=== PATIENT | female | born 2000 | race Caucasian/White ===

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

== ENCOUNTER 2023-09-09 01:20 | Emergency (ER) | payer OTHER ==
[~2023-09-09] VITALS: Ht 167.6 cm; Wt 127.0 kg
[2023-09-09 01:25] VITALS: TEMP 100.6
[2023-09-09 02:18] LABS: BASOPHILS % (AUTO) 0.3 % (0.0-2.0); EOSINOPHILS % (AUTO) 0.5 % (1.0-6.0); HEMATOCRIT 41.6 % (36-46); HEMOGLOBIN 13.8 g/dL (12.0-16.0); LYMPHOCYTES % (AUTO) 7.6 % (22.0-44.0); MEAN CORPUSCULAR HGB CONC 33.2 G/dL (31.0-37.0); MEAN CORPUSCULAR VOLUME 88 fL (80-100); MONOCYTES # (AUTO) 1.1 K/uL (0.1-1.0); MONOCYTES % (AUTO) 8.2 % (2.0-9.0); NEUTROPHILS # (AUTO) 11.5 K/uL (1.8-7.7); NEUTROPHILS % (AUTO) 83.4 % (40.0-70.0); PLATELET COUNT (AUTO) 387 K/uL (150-450); RED BLOOD CELL COUNT(AUTO) 4.76 MIL/uL (4.00-5.20); RED CELL DISTRIBUTION WIDTH 13.9 % (11.5-14.5); WHITE BLOOD COUNT (AUTO) 13.8 K/uL (4.5-11.0)
[2023-09-09 02:30] LABS: ANION GAP 9 mmol/L (8-16); CALCIUM, TOTAL 9.4 mg/dL (8.8-10.5); CARBON DIOXIDE 26 mmol/L (22-29); CHLORIDE 100 mmol/L (98-107); CREATININE 0.81 mg/dL (0.60-1.30); GLOMERULAR FILTR. RATE CALC > 60 mL/min (>60); GLUCOSE,RANDOM 119 mg/dL (70-110); POTASSIUM 3.9 mmol/L (3.5-5.1); SODIUM SERUM 135 mmol/L (136-145); UREA NITROGEN, BLOOD 12 mg/dL (7-18)
[2023-09-09 02:34] LABS: ALANINE AMINOTRANSFERASE 47 U/L (12-78); ALBUMIN 4.1 g/dL (3.4-5.0); ALKALINE PHOSPHATASE 57 U/L (46-116); ASPARTATE AMINOTRANSFERASE 26 U/L (15-37); BILIRUBIN,TOTAL 0.5 mg/dL (0.1-1.0); LIPASE 16 U/L (16-77); TOTAL PROTEIN, SERUM 8.5 g/dL (6.4-8.2)
[2023-09-09] MEDS ORDERED: ONDANSETRON HCL 4 MG/2 ML VIAL IVP ONE (02:45)
[2023-09-09] MEDS ORDERED: KETOROLAC TROMETHAMINE 30 MG/ML VIAL IVP ONE (02:45)
[2023-09-09] MEDS ORDERED: SODIUM CHLORIDE 0.9% 100 ML ONE (02:49)
[2023-09-09] MEDS ORDERED: IOHEXOL 350 MG/ML 100 ML VIAL ONE (02:49)
[2023-09-09 02:56] LABS: COVID AG,FIA SOURCE NASAL SWAB
[2023-09-09 03:17] LABS: INFLUENZA TYPE A NEGATIVE FOR TYPE A (NEGATIVE); INFLUENZA TYPE B NEGATIVE FOR TYPE B (NEGATIVE)
[2023-09-09 03:45] VITALS: BP 147/89; PULSE 88; RESP 20
[2023-09-09 03:48] LABS: SARS-COV2 (COVID) ANTIGEN,FIA Positive (Negative)
[2023-09-09] MEDS ORDERED: NIRM1TAB4 PO (04:31)
== END 2023-09-09 05:20 | disposition home or self-care (01) ==
LOC: EDUNIT# 01:20 → EMS 01:21
DX: U07.1 COVID-19 (principal)
CPT/HCPCS: 99285; 74177; 96374; 71045; 96375; 87426; 80053; 83690; 84703; 85025; 87804; J1885; J2405; Q9967; J7050

== ENCOUNTER 2025-06-07 09:18 | Emergency (ER) | payer OTHER ==
[~2025-06-07] VITALS: Ht 167.6 cm; Wt 125.0 kg
[~2025-06-07 09:18] MED LIST: NIRM1TAB4 PO
[2025-06-07 10:56] LABS: APPEARANCE,URINE CLEAR (CLEAR); GLUCOSE, URINE (UA) NEGATIVE (NEGATIVE); LEUKOCYTE ESTERASE ,URINE TRACE (NEGATIVE); NITRATE,URINE POSITIVE (NEGATIVE); OCCULT BLOOD,URINE NEGATIVE (NEGATIVE); SPECIFIC GRAVITIY, URINE 1.012 (1.003-1.030)
[2025-06-07 11:29] LABS: SQUAMOUS EPITHELIAL CELL,UR Few /LPF (None Seen); YEAST,URINE None Seen /HPF (None Seen)
[2025-06-07] MEDS ORDERED: METR500 PO (13:16)
[2025-06-07] MEDS ORDERED: DOXY-354 PO (13:16)
[2025-06-07 13:42] VITALS: BP 122/74; PULSE 81; RESP 17; TEMP 98.1; O2SAT 98
== END 2025-06-07 13:49 | disposition home or self-care (01) ==
LOC: EMS 09:18
DX: N76.0 Acute vaginitis (principal); E28.2 Polycystic ovarian syndrome; R10.84 Generalized abdominal pain; R19.7 Diarrhea, unspecified
CPT/HCPCS: 81001; 87086; 99283